=== PATIENT | male | born 1990 | race Caucasian/White ===

== ENCOUNTER 2020-09-03 07:39 | Emergency (ER) | payer OTHER ==
[2020-09-03] MEDS ORDERED: Fentanyl 100 MCG/2 ML VIAL ONE (08:17)
[2020-09-03] MEDS ORDERED: Lidocaine 1% w/Epinephrine 1:100K 20 ML VIAL ONE (09:01)
[2020-09-03] MEDS ORDERED: Ketorolac Tromethamine 30 MG/ML VIAL ONE (09:15)
== END 2020-09-03 10:18 | disposition home or self-care (01) ==
LOC: ERS 07:39
DX: S01.01XA Laceration without foreign body of scalp, initial encounter (principal); S42.021A Displaced fracture of shaft of right clavicle, initial encounter for closed fracture; Z79.899 Other long term (current) drug therapy; Z87.891 Personal history of nicotine dependence; V89.9XXA Person injured in unspecified vehicle accident, initial encounter
CPT/HCPCS: 12001; 70450; 72125; 96374; 96375; J1885; J3010